=== PATIENT | female | born 1970 | race Caucasian/White ===

== ENCOUNTER 2024-07-29 09:51 | Emergency (ER) | payer MEDICARE, OTHER ==
[~2024-07-29] VITALS: Ht 165.1 cm; Wt 75.0 kg
[~2024-07-29 09:51] MED LIST: LEVE1000 MT
[2024-07-29 09:52] VITALS: O2SAT 99
[2024-07-29 12:00] LABS: BASOPHILS % 0.7 % (0.0-2.0); EOSINOPHILS % 1.9 % (0.0-5.0); HEMATOCRIT. 40.7 % (36.0-48.0); HEMOGLOBIN. 13.1 g/dL (12.0-16.0); LYMPHOCYTES % 31.5 % (20.0-50.0); MEAN CORPUSCULAR HEMOGLOBIN 26.7 pg (28.0-32.0); MEAN CORPUSCULAR HGB CONC 32.3 g/dL (31.0-37.0); MEAN CORPUSCULAR VOLUME 82.7 fL (81.0-99.0); MEAN PLATELET VOLUME 10.1 fl (7.4-10.4); MONOCYTES % 6.2 % (2.0-8.0); NEUTROPHILS % 59.7 % (40.0-76.0); PLATELET 226 x1000/uL (130-400); RED BLOOD CELL COUNT 4.92 mill/uL (4.2-5.4); RED CELL DISTRIBUTION WIDTH 13.7 % (11.6-14.6)
[2024-07-29 12:52] VITALS: BP 127/77; PULSE 94; RESP 11; TEMP 36.66960; O2SAT 96
[2024-07-29 13:46] LABS: CARBON DIOXIDE 23 mEq/L (21-32); CHLORIDE 109 mEq/L (98-107); CREATININE 0.6 mg/dL (0.6-1.0); GLUCOSE 198 mg/dL (70-105); POTASSIUM 3.7 mEq/L (3.5-5.1); SODIUM 143 mEq/L (136-145); UREA NITROGEN BLOOD 10 mg/dL (9-23)
[2024-07-29 13:47] LABS: CALCIUM 9.4 mg/dL (8.7-10.4)
[2024-07-29 13:48] LABS: TROPONIN I HIGH SENSITIVITY < 4 ng/L (3.0-34)
== END 2024-07-29 13:36 | disposition home or self-care (01) ==
LOC: ER 10:25
DX: G40.909 Epilepsy, unspecified, not intractable, without status epilepticus (principal); I10 Essential (primary) hypertension; Z86.73 Personal history of transient ischemic attack (TIA), and cerebral infarction without residual deficits
CPT/HCPCS: 99285; 71045; 80048; 83880; 85025; 84484; 36415; 93005; C1893